=== PATIENT | male | born 1990 | race Asian ===

== ENCOUNTER 2016-09-07 03:34 | Emergency (ER) | payer SELFPAY ==
[~2016-09-07] VITALS: Ht 180.3 cm; Wt 63.5 kg
[2016-09-07 03:34] VITALS: BP_SYST 127
--- NOTE | 2016-09-07 03:35 | NUR ---
Patient to ER bed 4 to gown for evaluation. Side rails up. Report given to Frankie PORTILLO.
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
--- NOTE | 2016-09-07 03:45 | NUR ---
ER Dr. Munoz at bedside examining patient.
--- NOTE | 2016-09-07 04:30 | NUR ---
Pt transferred to CT and back without incident.
--- NOTE | 2016-09-07 05:53 | NUR ---
Written and verbal consent obtained from patient for blood alcohol, name and verified by patient. Disinfected patient's skin with iodine that did not contain alcohol or other volatile organic compound. Collected the blood from the subject named by venipuncture, in the presence of Officer with badge number [id number]. Used a sterile, dry hypodermic needle and dry vacuum blood collection. The dry vacuum blood collection was supplied by the officer named above. Withdrew a specimen of blood from L AC of the subject named above. Inverted the blood tube several times to ensure that the preservative and anticoagulant were thoroughly mixed in the blood specimen. I initialed the blood tube label for identification. The labeled blood tube was handed directly to the Officer named above. The blood tube stopper remained in place while I had possession of the blood tube. The Officer placed tube into envelope and sealed it in my presence. Envelope initialed by myself and Officer named above. Patient tolerated well, bandage applied, and bleeding controlled.
[2016-09-07 05:55] VITALS: BP_SYST 127
--- NOTE | 2016-09-07 05:55 | NUR ---
Patient given written and verbal discharge instructions and verbalizes understanding. ER MD discussed with patient the results and treatment provided. Patient in stable condition. ID arm band removed. Patient educated on pain management and to follow up with PMD. Pain Scale 0/10. Opportunity for questions provided and answered.
== END 2016-09-07 05:55 ==
LOC: SED 03:34
DX: Z02.89 Encounter for other administrative examinations (principal); S00.81XA Abrasion of other part of head, initial encounter; Y04.0XXA Assault by unarmed brawl or fight, initial encounter; Y93.89 Activity, other specified; Y92.89 Other specified places as the place of occurrence of the external cause; Y99.8 Other external cause status
CPT/HCPCS: 70450-TC; 70486-TC; 99284